=== PATIENT | male | born 1955 | race Caucasian/White ===

== ENCOUNTER 2018-04-10 17:18 | Emergency (ER) | payer OTHER ==
[2018-04-10 18:01] LABS: ADD UMIC YES; UR ASCORBIC ACID NEGATIVE (NEGATIVE); UR BILIRUBIN (Dip) NEGATIVE (NEGATIVE); UR BLOOD (Dip) 1+ mg/dL (NEGATIVE); UR CLARITY CLEAR (CLEAR); UR COLOR YELLOW (YELLOW); UR GLUCOSE (Dip) 3+ mg/dL (NEGATIVE); UR KETONES (Dip) NEGATIVE (NEGATIVE); UR LEUKOCYTE ESTERASE (Dip) NEGATIVE Leu/ul (NEGATIVE); UR NITRITE (Dip) NEGATIVE (NEGATIVE); UR RBC 4 /HPF (0-5); UR SPECIFIC GRAVITY (Dip) 1.011 (1.003-1.030); UR TOTAL PROTEIN (Dip) 2+ mg/dl (NEGATIVE); UR UROBILINOGEN (Dip) NEGATIVE (NEGATIVE); UR WBC 1 /HPF (0-5)
[2018-04-10] MEDS: LIDOCAINE 2% JEL.PF.APP 5 ML UROJET SYRINGE MM (18:16)
== END 2018-04-10 18:15 | disposition home or self-care (01) ==
LOC: E/R 17:18
DX: N40.1 Benign prostatic hyperplasia with lower urinary tract symptoms (principal); R33.8 Other retention of urine
CPT/HCPCS: 81001; 87086; 99283

== ENCOUNTER 2018-07-03 05:53 | Observation (INO) | payer OTHER ==
[2018-07-03] MEDS ORDERED: CIPRO 400 MG/200 ML D5W IVPB (07:00)
[2018-07-03] MEDS ORDERED: SEVOFLURANE 15 MIN (07:00)
[2018-07-03] MEDS ORDERED: ONDANSETRON 4 MG INJ (07:00)
[2018-07-03] MEDS ORDERED: METOCLOPRAMIDE 10 MG INJ (07:28)
[2018-07-03] MEDS ORDERED: MIDAZOLAM 1 MG/ML 2 ML INJ (07:28)
[2018-07-03] MEDS ORDERED: PROPOFOL 20 ML (07:28)
[2018-07-03] MEDS ORDERED: LIDOCAINE 2% (SDV) 5 ML INJ (07:28)
[2018-07-03] MEDS ORDERED: FENTAnyl 50 MCG/ML VIAL ×2 (07:28→08:22)
[2018-07-03] MEDS ORDERED: DIPHENHYDRAMINE 50 MG INJ IV (07:30)
[2018-07-03] MEDS ORDERED: HYDROmorphONE 1 MG/5 ML IV SYRINGE IV ×2 (07:30)
[2018-07-03] MEDS ORDERED: ONDANSETRON 4 MG INJ IV (07:30)
[2018-07-03] MEDS ORDERED: MEPERIDINE 25 MG INJ IV (07:30)
[2018-07-03] MEDS ORDERED: FENTAnyl 50 MCG/ML VIAL IV (07:30)
[2018-07-03] MEDS ORDERED: DEXTROSE 5%-0.45% NACL 1,000 ML IV (09:12)
[2018-07-03] MEDS: HYDROmorphONE 1 MG/5 ML IV SYRINGE IV (09:22)
[2018-07-03] MEDS: FENTAnyl 50 MCG/ML VIAL IV (09:29)
[2018-07-03] MEDS ORDERED: MAGNESIUM HYDROXIDE 30ML CUP PO (09:30)
[2018-07-03] MEDS ORDERED: HYDROCODONE/APAP (5/325) TAB PO (09:30)
[2018-07-03] MEDS: BELLADONNA ALK/OPIUM SUPP PR (10:03)
[2018-07-03] MEDS: CIPROFLOXACIN 400 MG in D5W 200 ML IVPB (10:39)
[2018-07-03] MEDS: DEXTROSE 5%-0.45% NACL 1,000 ML IV (10:41)
[2018-07-03] MEDS ORDERED: DEXTROSE 50% 50 ML SYRINGE IV ×2 (14:00)
[2018-07-03] MEDS ORDERED: GLUCOSE GEL 15 GRAM TUBE PO ×2 (14:00)
[2018-07-03] MEDS ORDERED: GLUCOSE GEL 15 GRAM TUBE BUCCAL (14:00)
[2018-07-03] MEDS ORDERED: GLUCAGON 1 MG INJ IM (14:00)
[2018-07-03] MEDS: CIPROFLOXACIN 500 MG TAB PO (17:17)
[2018-07-03] MEDS: INSULIN ASPART [NOVOLOG] 3 ML PEN SC ×2 (17:18→21:38)
[2018-07-03] MEDS ORDERED: INSULIN ASPART [NOVOLOG] 3 ML PEN SC (18:05)
[2018-07-03] MEDS: DOCUSATE SODIUM 100 MG CAP PO (21:00)
[2018-07-04] MEDS: CIPROFLOXACIN 500 MG TAB PO ×2 (05:14→17:22)
[2018-07-04 06:44] LABS: ADD MAN DIFF? NO
[2018-07-04 07:02] LABS: BASOPHILS % 0.4 % (0.0-2.0); EOSINOPHILS # 0.1 10^3/ul (0.0-0.5); EOSINOPHILS % 0.7 % (0.0-7.0); HEMATOCRIT 34.5 % (42.0-52.0); HEMOGLOBIN 11.7 g/dl (14.0-18.0); LYMPHOCYTES # 1.7 10^3/ul (0.8-2.9); LYMPHOCYTES % 23.4 % (15.0-51.0); MEAN CORPUSCULAR HEMOGLOBIN 28.5 pg (29.0-33.0); MEAN CORPUSCULAR HGB CONC 33.9 g/dl (32.0-37.0); MEAN CORPUSCULAR VOLUME 83.9 fl (82.0-101.0); MEAN PLATELET VOLUME 11.9 fl (7.4-10.4); MONOCYTE # 0.8 10^3/ul (0.3-0.9); MONOCYTES % 11.8 % (0.0-11.0); NEUTROPHIL # 4.5 10^3/ul (1.6-7.5); NEUTROPHILS % 63.3 % (39.0-77.0); PLATELET COUNT 163 10^3/UL (140-415); RED BLOOD COUNT 4.11 10^6/ul (4.70-6.10); RED CELL DISTRIBUTION WIDTH 12.9 % (11.5-14.5)
[2018-07-04 07:02] LABS: WHITE BLOOD COUNT 7.1 10^3/ul (4.8-10.8)
[2018-07-04] MEDS: INSULIN ASPART [NOVOLOG] 3 ML PEN SC ×2 (08:00→12:42)
[2018-07-04] MEDS: DOCUSATE SODIUM 100 MG CAP PO (08:49)
[2018-07-04 12:36] LABS: ANION GAP 8 (5-13); BLOOD UREA NITROGEN 18 mg/dl (7-20); CALCIUM 8.9 mg/dl (8.4-10.2); CARBON DIOXIDE 28 mmol/L (21-31); CHLORIDE 101 mmol/L (97-110); CREATININE 0.98 mg/dl (0.61-1.24); Estimated GFR > 60 mL/min (>60); GLUCOSE 202 mg/dl (70-220); POTASSIUM 4.3 mmol/L (3.5-5.1); SODIUM 137 mmol/L (135-144)
== END 2018-07-04 17:40 ==
LOC: SDS 05:53 → REC 09:12 → PP2 10:30
PROVIDERS: Urology
DX: N40.1 Benign prostatic hyperplasia with lower urinary tract symptoms (principal); R33.8 Other retention of urine; N41.1 Chronic prostatitis; N41.0 Acute prostatitis; E11.9 Type 2 diabetes mellitus without complications; Z79.84 Long term (current) use of oral hypoglycemic drugs
CPT/HCPCS: 52601; 80048; 82962; 85025; 88305; 99217; G0378

== ENCOUNTER 2018-07-28 09:20 | Emergency (ER) | payer OTHER ==
[2018-07-28 10:55] LABS: ADD UMIC YES; UR ASCORBIC ACID NEGATIVE (NEGATIVE); UR BACTERIA MANY /HPF (NONE SEEN); UR BILIRUBIN (Dip) NEGATIVE (NEGATIVE); UR BLOOD (Dip) 3+ mg/dL (NEGATIVE); UR CLARITY CLOUDY (CLEAR); UR COLOR YELLOW (YELLOW); UR GLUCOSE (Dip) 2+ mg/dL (NEGATIVE); UR KETONES (Dip) NEGATIVE (NEGATIVE); UR LEUKOCYTE ESTERASE (Dip) 3+ Leu/ul (NEGATIVE); UR MUCUS FEW /HPF (NONE SEEN); UR NITRITE (Dip) POSITIVE (NEGATIVE); UR RBC 160 /HPF (0-5); UR SPECIFIC GRAVITY (Dip) 1.012 (1.003-1.030); UR TOTAL PROTEIN (Dip) 2+ mg/dl (NEGATIVE); UR UROBILINOGEN (Dip) NEGATIVE (NEGATIVE); UR WBC > 182 /HPF (0-5)
[2018-07-28 11:46] LABS: ADD MAN DIFF? NO
[2018-07-28 11:48] LABS: WHITE BLOOD COUNT 8.2 10^3/ul (4.8-10.8)
[2018-07-28 11:48] LABS: BASOPHILS % 0.4 % (0.0-2.0); EOSINOPHILS # 0.2 10^3/ul (0.0-0.5); EOSINOPHILS % 1.8 % (0.0-7.0); HEMATOCRIT 33.4 % (42.0-52.0); HEMOGLOBIN 11.2 g/dl (14.0-18.0); LYMPHOCYTES # 0.9 10^3/ul (0.8-2.9); LYMPHOCYTES % 11.3 % (15.0-51.0); MEAN CORPUSCULAR HGB CONC 33.5 g/dl (32.0-37.0); MEAN CORPUSCULAR VOLUME 83.5 fl (82.0-101.0); MEAN PLATELET VOLUME 11.2 fl (7.4-10.4); MONOCYTE # 0.7 10^3/ul (0.3-0.9); NEUTROPHIL # 6.4 10^3/ul (1.6-7.5); NEUTROPHILS % 78.1 % (39.0-77.0); PLATELET COUNT 208 10^3/UL (140-415); RED CELL DISTRIBUTION WIDTH 12.3 % (11.5-14.5)
[2018-07-28] MEDS: CEFTRIAXONE 1 GM/50 ML (PMX) 50 ML IVPB (12:05)
[2018-07-28 12:11] LABS: ALANINE AMINOTRANSFERASE 15 IU/L (13-69); ALBUMIN 3.9 g/dl (3.3-4.9); ALBUMIN/GLOBULIN RATIO 1.34; ALKALINE PHOSPHATASE 99 IU/L (42-121); ANION GAP 10 (5-13); ASPARTATE AMINO TRANSFERASE 19 IU/L (15-46); BILIRUBIN,INDIRECT 0.3 mg/dl (0-1.1); BILIRUBIN,TOTAL 0.3 mg/dl (0.2-1.3); BLOOD UREA NITROGEN 20 mg/dl (7-20); CALCIUM 9.2 mg/dl (8.4-10.2); CARBON DIOXIDE 24 mmol/L (21-31); CHLORIDE 104 mmol/L (97-110); CREATININE 0.89 mg/dl (0.61-1.24); Estimated GFR > 60 mL/min (>60); GLUCOSE 214 mg/dl (70-220); POTASSIUM 4.7 mmol/L (3.5-5.1); SODIUM 138 mmol/L (135-144); TOTAL PROTEIN 6.8 g/dl (6.1-8.1)
== END 2018-07-28 14:06 | disposition home or self-care (01) ==
LOC: E/R 09:20
DX: N12 Tubulo-interstitial nephritis, not specified as acute or chronic (principal); R40.2142 Coma scale, eyes open, spontaneous, at arrival to emergency department; R40.2362 Coma scale, best motor response, obeys commands, at arrival to emergency department
CPT/HCPCS: 80048; 80053; 81001; 85025; 87086; 96374; 99284-25

== ENCOUNTER 2018-08-14 20:36 | Emergency (ER) | payer MEDICARE, OTHER ==
[2018-08-15 00:36] LABS: ADD UMIC YES; UR ASCORBIC ACID NEGATIVE (NEGATIVE); UR BACTERIA FEW /HPF (NONE SEEN); UR BILIRUBIN (Dip) NEGATIVE (NEGATIVE); UR BLOOD (Dip) 3+ mg/dL (NEGATIVE); UR CLARITY CLOUDY (CLEAR); UR COLOR AMBER (YELLOW); UR GLUCOSE (Dip) 3+ mg/dL (NEGATIVE); UR KETONES (Dip) NEGATIVE (NEGATIVE); UR LEUKOCYTE ESTERASE (Dip) 3+ Leu/ul (NEGATIVE); UR MUCUS FEW /HPF (NONE SEEN); UR NITRITE (Dip) POSITIVE (NEGATIVE); UR RBC > 182 /HPF (0-5); UR SPECIFIC GRAVITY (Dip) 1.012 (1.003-1.030); UR TOTAL PROTEIN (Dip) 2+ mg/dl (NEGATIVE); UR UROBILINOGEN (Dip) NEGATIVE (NEGATIVE); UR WBC > 182 /HPF (0-5)
== END 2018-08-15 00:38 | disposition home or self-care (01) ==
LOC: E/R 20:36
DX: R33.9 Retention of urine, unspecified (principal); E11.9 Type 2 diabetes mellitus without complications; Z79.84 Long term (current) use of oral hypoglycemic drugs
CPT/HCPCS: 81001; 87086; 99283

== ENCOUNTER 2018-09-04 08:44 | Observation (INO) | payer MEDICARE, OTHER ==
[2018-09-04] MEDS ORDERED: GLYCOPYRROLATE 0.4 MG INJ ×2 (13:07→13:41)
[2018-09-04] MEDS ORDERED: SUCCINYLCHOLINE CHLORIDE 100 MG/5 ML SYG IV (13:07)
[2018-09-04] MEDS ORDERED: PROPOFOL 20 ML (13:07)
[2018-09-04] MEDS ORDERED: ROCURONIUM 50 MG INJ (13:07)
[2018-09-04] MEDS ORDERED: LIDOCAINE 2% (SDV) 5 ML INJ (13:07)
[2018-09-04] MEDS ORDERED: METOCLOPRAMIDE 10 MG INJ IV (13:30)
[2018-09-04] MEDS ORDERED: MEPERIDINE 25 MG INJ IV (13:30)
[2018-09-04] MEDS ORDERED: MIDAZOLAM 1 MG/ML 2 ML INJ IV (13:30)
[2018-09-04] MEDS ORDERED: FENTAnyl 50 MCG/ML VIAL IV ×3 (13:30)
[2018-09-04] MEDS ORDERED: EPHEDrine SULFATE 50 MG/5 ML SYG IV (13:30)
[2018-09-04] MEDS ORDERED: DIPHENHYDRAMINE 50 MG INJ IV (13:30)
[2018-09-04] MEDS ORDERED: ONDANSETRON 4 MG INJ IV (13:30)
[2018-09-04] MEDS ORDERED: OXYCODONE/ACETAMINOPHEN (5/325) TAB PO ×2 (13:30)
[2018-09-04] MEDS ORDERED: HYDROmorphONE 1 MG/5 ML IV SYRINGE IV ×2 (13:30)
[2018-09-04] MEDS ORDERED: LABETALOL HCL 20MG INJ IV (13:30)
[2018-09-04] MEDS ORDERED: hydrALAzine 20 MG INJ IV (13:30)
[2018-09-04] MEDS ORDERED: NEOSTIGMINE 10 MG INJ (13:41)
[2018-09-04] MEDS: CIPROFLOXACIN 400MG/D5W 200 ML IVPB (14:29)
[2018-09-04] MEDS: DEXTROSE 5%-0.45% NACL 1,000 ML IV (14:31)
[2018-09-04] MEDS: HYDROmorphONE 1 MG/5 ML IV SYRINGE IV ×3 (14:52→15:11)
[2018-09-04] MEDS ORDERED: MAGNESIUM HYDROXIDE 30ML CUP PO (15:00)
[2018-09-04] MEDS: BELLADONNA ALK/OPIUM SUPP PR (15:11)
[2018-09-04] MEDS: HYDROCODONE/APAP (5/325) TAB PO (16:49)
[2018-09-04] MEDS: CIPROFLOXACIN 500 MG TAB PO (18:20)
[2018-09-04 19:30] LABS: ADD MAN DIFF? NO
[2018-09-04 19:33] LABS: WHITE BLOOD COUNT 7.7 10^3/ul (4.8-10.8)
[2018-09-04 19:33] LABS: BASOPHILS % 0.5 % (0.0-2.0); EOSINOPHILS % 0.3 % (0.0-7.0); HEMATOCRIT 36.6 % (42.0-52.0); HEMOGLOBIN 11.8 g/dl (14.0-18.0); LYMPHOCYTES # 1.1 10^3/ul (0.8-2.9); LYMPHOCYTES % 13.8 % (15.0-51.0); MEAN CORPUSCULAR HEMOGLOBIN 26.9 pg (29.0-33.0); MEAN CORPUSCULAR HGB CONC 32.2 g/dl (32.0-37.0); MEAN CORPUSCULAR VOLUME 83.6 fl (82.0-101.0); MEAN PLATELET VOLUME 11.2 fl (7.4-10.4); MONOCYTE # 0.7 10^3/ul (0.3-0.9); MONOCYTES % 8.5 % (0.0-11.0); NEUTROPHIL # 5.9 10^3/ul (1.6-7.5); NEUTROPHILS % 76.4 % (39.0-77.0); PLATELET COUNT 177 10^3/UL (140-415); RED BLOOD COUNT 4.38 10^6/ul (4.70-6.10); RED CELL DISTRIBUTION WIDTH 12.4 % (11.5-14.5)
[2018-09-04 19:51] LABS: ANION GAP 8 (5-13); BLOOD UREA NITROGEN 16 mg/dl (7-20); CALCIUM 8.5 mg/dl (8.4-10.2); CARBON DIOXIDE 27 mmol/L (21-31); CHLORIDE 106 mmol/L (97-110); CREATININE 0.86 mg/dl (0.61-1.24); Estimated GFR > 60 mL/min (>60); GLUCOSE 162 mg/dl (70-220); POTASSIUM 4.2 mmol/L (3.5-5.1); SODIUM 141 mmol/L (135-144)
[2018-09-04] MEDS: ALFUZOSIN (SR) 10 MG TAB PO (20:26)
[2018-09-04] MEDS: DOCUSATE SODIUM 100 MG CAP PO (20:26)
[2018-09-05] MEDS: DEXTROSE 5%-0.45% NACL 1,000 ML IV ×2 (03:29→10:31)
[2018-09-05] MEDS: CIPROFLOXACIN 500 MG TAB PO (06:07)
[2018-09-05] MEDS: DOCUSATE SODIUM 100 MG CAP PO (08:26)
== END 2018-09-05 12:18 | disposition home or self-care (01) ==
LOC: SDS 08:44 → REC 14:33 → MS1 16:02
PROVIDERS: Urology
DX: N40.1 Benign prostatic hyperplasia with lower urinary tract symptoms (principal); R33.8 Other retention of urine; E11.9 Type 2 diabetes mellitus without complications
CPT/HCPCS: 52601; 80048; 82962; 85025; 88305; 93005